=== PATIENT | female | born 1965 | race Caucasian/White ===

== ENCOUNTER 2018-06-26 01:12 | Emergency (ER) | payer SELFPAY ==
[2018-06-26] MEDS ORDERED: PROMETHAZINE HCL INJ 25 MG/ML VIAL ONE ×2 (01:18→01:32)
[2018-06-26] MEDS ORDERED: KETOROLAC TROMETHAMINE INJ 30 MG/ML VIAL ONE (01:18)
[2018-06-26 01:19] VITALS: TEMP 99.4
--- NOTE | 2018-06-26 01:21 | ED.PDOC ---
History of Present Illness - General Chief Complaint: Back Pain or Injury Stated Complaint: Low L back discomfort, vomiting Time Seen by Provider: 06/26/18 01:18 Source: patient, Vital Signs reviewed Exam Limitations: no limitations Additional Information: 52 YEAR OLD HERE FOR EVALUATION OF ACUTE SUDDEN ONSET OF PAIN IN THE LEFT FLANK ASSOCIATED WITH NAUSEA AND VOMITING SHE HAS BEEN EXPERIENCING [place] [facility] IN THE LEFT FLANK SIMILAR TO TONIGHT ON AND OFF FOR A YEAR BUT THE PAIN RESOLVED IN 20 - 30 MIN SHE HAD CONSULTED A UROLOGIST WHILE SHE WAS LIVING IN [place] 2 YEARS AGO AND WAS TOLD SINCE HER RENAL FUNCTION WAS NORMAL NOT TO PURSUE THE POSSIBLE LEFT URETERIC OBSTRUCTION - History of Present Illness Timing/Duration: 1/2 hour Severity: moderate Improving Factors: nothing Worsening Factors: nothing Associated Symptoms: nausea/vomiting Allergies/Adverse Reactions: Allergies NO KNOWN ALLERGY Allergy (Verified 06/26/18 01:18) Home Medications: Ambulatory Orders Acetamin W/Cod #3 Tab [Tylenol w/CODEINE #3] 1 ea PO Q6HR PRN #40 tab 06/26/18 Review of Systems - Review of Systems Constitutional: States: no symptoms reported EENTM: States: no symptoms reported Respiratory: States: no symptoms reported Cardiology: States: no symptoms reported Gastrointestinal/Abdominal: States: no symptoms reported Genitourinary: States: no symptoms reported Skin: States: no symptoms reported Neurological: States: no symptoms reported Endocrine: States: no symptoms reported Hematologic/Lymphatic: States: no symptoms reported Family Medical History - Family History Mother Family History: No Known Living Status: Still Living Physical Exam - Physical Exam General Appearance: Obvious distress Eye Exam: bilateral normal Ears, Nose, Throat: hearing grossly normal, normal ENT inspection, normal pharynx Neck: non-tender, full range of motion, supple Respiratory: chest non-tender, lungs clear, normal breath sounds, no respiratory distress, no accessory muscle use Cardiovascular/Chest: normal peripheral pulses, regular rate, rhythm, no edema, no gallop, no JVD, no murmur Gastrointestinal/Abdominal: normal bowel sounds, non tender, soft, no organomegaly, no pulsatile mass Back Exam: normal inspection, no CVA tenderness, no vertebral tenderness Progress - Results/Orders Results/Orders: Laboratory Tests 06/26/18 06/26/18 01:21 01:21 WBC 13.2 H RBC 4.29 Hgb 13.0 Hct 39.7 MCV 92.7 MCH 30.4 MCHC 32.7 L RDW 13.0 Plt Count 239 MPV 7.7 Absolute Neuts (auto) 10.30 H Absolute Lymphs (auto) 2.10 Absolute Monos (auto) 0.60 Absolute Eos (auto) 0.10 Absolute Basos (auto) 0.10 Neutrophils % 77.9 Lymphocytes % 15.7 L Monocytes % 4.8 Eosinophils % 0.9 L Basophils % 0.7 Sodium 141 Potassium 3.4 L Chloride 106 Carbon Dioxide 24 Anion Gap 14.4 BUN 16 Creatinine 0.97 BUN/Creatinine Ratio 16.5 Random Glucose 153 H Serum Osmolality 285.5 Calcium 9.3 Total Bilirubin 0.7 AST 24 ALT 18 Alkaline Phosphatase 38 L Serum Total Protein 6.9 Albumin 4.2 Globulin 2.7 Albumin/Globulin Ratio 1.6 Departure - Departure Clinical Impression: Hydronephrosis concurrent with and due to calculi of kidney and ureter Time of Disposition: 02:55 Disposition: Discharge to Home or Self Care Condition: Good Departure Forms: ED Discharge - Pt. Copy, Patient Portal Self Enrollment Instructions: DI for Low Back Pain Diet: resume usual diet Prescriptions: Acetamin W/Cod #3 Tab [Tylenol w/CODEINE #3] 1 ea PO Q6HR PRN #40 tab PRN Reason: Mild To Moderate Pain Home Medications: Ambulatory Orders Acetamin W/Cod #3 Tab [Tylenol w/CODEINE #3] 1 ea PO Q6HR PRN #40 tab 06/26/18
[2018-06-26] MEDS ORDERED: KETOROLAC TROMETHAMINE INJ 30 MG/ML VIAL IV ONE (01:22)
[2018-06-26] MEDS ORDERED: SODIUM CHLORIDE 0.9% 1000ML 1,000 ML IVS ONE (01:22)
[2018-06-26] MEDS ORDERED: PROMETHAZINE HCL INJ 12.5 MG in SODIUM CHLORIDE 0.9% 50ML 50 ML IVPB ONE (01:28)
[2018-06-26] MEDS ORDERED: SODIUM CHLORIDE 0.9% 50ML 50 ML ONE (01:32)
[2018-06-26] MEDS ORDERED: fentaNYL CITRATE INJ 50 MCG/ML AMP ONE (01:37)
[2018-06-26] MEDS ORDERED: fentaNYL CITRATE INJ 50 MCG/ML AMP IV ONE (01:37)
--- NOTE | 2018-06-26 02:12 | CT ---
NONCONTRAST ABDOMEN AND PELVIC CT EXAMINATION. HISTORY: Left flank pain. PROCEDURE: Using helical technique, thin section axial images were performed through the abdomen and pelvis without the administration of intravenous or oral contrast material. FINDINGS: There is severe hydronephrosis of the left urinary system secondary to a 3 mm calcified stone in the far downstream left ureter. The right urinary system is grossly normal on this noncontrast examination. The appendix is clearly visualized and is normal. No evidence of appendicitis, diverticulitis, inflammatory bowel disease, bowel obstruction, extraluminal bowel gas or retroperitoneal hemorrhage. No ascites, free pelvic fluid or evidence of intra-abdominal abscess on this noncontrast examination. 9 mm noncalcified solitary peripheral right hepatic lobe nodule possibly representing a cyst. The liver, spleen, pancreas, stomach and duodenum are otherwise grossly normal on this noncontrast examination. Great vessels are grossly normal on this noncontrast examination. Size and contour the uterus and ovaries appears grossly normal. Degenerative disease at the L4/L5 and L5/S1 levels without fracture, spondylolisthesis or spondylolysis. Bones are otherwise normal for age. IMPRESSION: 1. Severe left hydronephrosis possibly secondary to a 3 mm calcified stone in the far downstream left ureter. 2. Probable 9 mm noncalcified peripheral right hepatic lobe cyst. 3. Degenerative disease at the L4/L5 and L5/S1 levels. If clinical concern persists, post intravenous contrast and post oral contrast abdomen and pelvic CT examination should be performed for further evaluation. This exam was performed according to our departmental dose-optimization program, which includes automated exposure control, adjustment of the mA and/or kV according to patient size and/or use of iterative reconstruction technique. Electronically signed by: Prudencio Mccarthy MD 06/26/2018 2:10 AM CDT
[2018-06-26] MEDS ORDERED: HYDROcodone 10MG/APAP 325MG 1 EA TAB PO ONE (05:16)
[2018-06-26 06:42] VITALS: BP 108/35; O2SAT 98
== END 2018-06-26 06:05 | disposition home or self-care (01) ==
LOC: ER 01:12
DX: N13.2 Hydronephrosis with renal and ureteral calculous obstruction (principal)
CPT/HCPCS: 74176; 80053; 81001; 85025; A4216; J1885; J2550; J3010; J7030

== ENCOUNTER → 2018-07-08 | Outpatient (CLI) | payer OTHER | LOC: GMAE 16:51 | PROVIDERS: ATTEND Family Medicine | DX: D37.6 Neoplasm of uncertain behavior of liver, gallbladder and bile ducts (principal) ==

== ENCOUNTER → 2018-07-13 | Outpatient (CLI) | payer SELFPAY ==
--- NOTE | 2018-07-13 18:34 | CT ---
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 Sagittal and coronal reconstruction was performed.This exam was performed according to our departmental dose-optimization program, which includes automated exposure control, adjustment of the mA and/or kV according to patient size and/or use of iterative reconstruction technique. FINDINGS: Bilateral breast implants are observed. The lung bases are clear. The liver and spleen are unremarkable. A probable small cyst is identified in the right liver lobe anteriorly. No biliary ductal dilatation is observed. The gallbladder is normal in appearance. No adrenal mass is detected. The pancreas is normal in appearance. Imaging of the kidneys reveals no evidence of mass cyst or calcification. There is mild left-sided hydronephrosis. The uterus and adnexa are unremarkable. No free pelvic fluid is observed. No inguinal region abnormality is seen. The appendix is identified and is normal in appearance. Degenerative changes are observed in the lower lumbar spine. IMPRESSION: 1. A small cyst is observed in the right lobe the liver anteriorly. 2. Left-sided hydronephrosis is observed with dilatation of the pelvicalyceal system and very proximal ureter. The distal ureters not dilated. The etiology for the obstruction is uncertain. Electronically signed by: Florentino Gramajo MD 07/13/2018 6:33 PM CDT
== END ==
LOC: CT 08:01
PROVIDERS: ATTEND Family Medicine
DX: D37.6 Neoplasm of uncertain behavior of liver, gallbladder and bile ducts (principal); N13.39 Other hydronephrosis